=== PATIENT | male | born 1980 | race African-American/Black ===

== ENCOUNTER 2017-05-04 16:10 | Emergency (ER) | payer MEDICAID ==
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
[2017-05-04] MEDS ORDERED: Ibuprofen TAB* 600 MG PO ONE (17:49)
[2017-05-04 18:22] VITALS: BP 124/68
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
== END 2017-05-04 18:22 | disposition home or self-care (01) ==
LOC: ED 16:10
DX: S00.83XA Contusion of other part of head, initial encounter (principal); Y04.2XXA Assault by strike against or bumped into by another person, initial encounter; Y92.89 Other specified places as the place of occurrence of the external cause
CPT/HCPCS: 70486; 99282; A9270-GY

== ENCOUNTER 2017-09-07 04:46 | Emergency (ER) | payer MEDICAID, OTHER ==
[2017-09-07] MEDS ORDERED: Tetan/Diph/Pertus SYR(Tdap)* 0.5 ML SYR(BOOSTRIX) use SYR IM ONE (04:49)
[2017-09-07] MEDS ORDERED: Lidocaine 1%* 5 ML VIAL INJ ONE (04:57)
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
[2017-09-07 06:41] VITALS: BP 131/83
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
== END 2017-09-07 06:50 | disposition home or self-care (01) ==
LOC: ED 04:46
DX: S61.412A Laceration without foreign body of left hand, initial encounter (principal); W26.0XXA Contact with knife, initial encounter; Y92.9 Unspecified place or not applicable
CPT/HCPCS: 12002; 90715; 99282

== ENCOUNTER 2017-10-05 20:24 | Emergency (ER) | payer OTHER ==
[2017-10-05] MEDS ORDERED: Metoclopramide IV* 5 MG/ML 2 ML VIAL IV SLOW PU ONE (21:29)
[2017-10-05] MEDS ORDERED: NS 0.9% 1000 ML* 1,000 ML IV ONE (21:29)
[2017-10-05] MEDS ORDERED: Morphine INJ* 4 MG/ML 1 ML SYRINGE (NEW SYRINGE VERSION) IV ONE (21:29)
[2017-10-05] MEDS ORDERED: Lidocaine 2% PF * 5 ML VIAL ONE ×2 (21:37→22:09)
[2017-10-05 21:51] LABS: ABS Basophils 0.1 10^3/ul (0-0.2); ABS Eosinophils 0 10^3/ul (0-0.6); ABS Lymphocytes 1.3 10^3/ul (1.0-4.8); ABS Monocytes 0.4 10^3/ul (0-0.8); ABS Neutrophils 5.5 10^3/ul (1.5-7.7); ABS Nucleated RBC 0 10^3/ul; Eosinophil % 0.5 % (0-6); Hematocrit 42 % (42-52); Hemoglobin 14.4 g/dl (14.0-18.0); Mean Corpuscular HGB Conc 35 g/dl (31-36); Mean Corpuscular Hemoglobin 33 pg (27-31); Mean Corpuscular Volume 96 fL (80-94); Mean Platelet Volume 8 um3 (7.4-10.4); Nucleated Red Blood Cells % 0.1; Platelet Count 194 10^3/ul (150-450); Red Blood Count 4.32 10^6/ul (4.0-5.4); Red Cell Distribution Width 13 % (10.5-15); White Blood Count 7.3 10^3/ul (3.5-10.8)
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
[2017-10-05 22:01] LABS: EGFR Non-African American 85.1 (>60)
[2017-10-05] MEDS ORDERED: Piperacillin/Tazobac ADVAN(*) 3.375 GM in NS 0.9% 100 ML* 100 ML IVPB ONE (22:53)
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
[2017-10-06] MEDS ORDERED: Ibuprofen TAB* 800 MG PO SCH (00:15)
[2017-10-06 00:22] VITALS: BP 100/59
[2017-10-06] MEDS ORDERED: Ibuprofen TAB* 800 MG PO ONE (00:32)
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
--- NOTE | 2017-10-06 07:31 | RAD ---
HISTORY: Post reduction COMPARISONS: October 05, 2017 at 9:58 PM. VIEWS: 4, Frontal, lateral, and oblique views of the right hand at 10:29 PM FINDINGS: BONE DENSITY: Normal. BONES: There is no displaced fracture. JOINTS: There is no arthropathy. ALIGNMENT: There has been interval reduction of the third PIP dislocation. SOFT TISSUES: Unremarkable. OTHER FINDINGS: None. IMPRESSION: INTERVAL REDUCTION OF THIRD PIP DISLOCATION..
== END 2017-10-06 00:25 | disposition home or self-care (01) ==
LOC: ED 20:24
DX: S02.82XA Fracture of other specified skull and facial bones, left side, initial encounter for closed fracture (principal); S63.259A Unspecified dislocation of unspecified finger, initial encounter; Y09 Assault by unspecified means; Y92.9 Unspecified place or not applicable
CPT/HCPCS: 36415; 70450; 70486; 72125; 80053; 80320; 82550; 83605; 85025; 99284; A9270-GY; G0480; J2270; J2543; J2765

== ENCOUNTER 2017-12-08 04:58 | Emergency (ER) | payer OTHER ==
[2017-12-08 05:02] VITALS: BP 144/85
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
--- NOTE | 2017-12-08 08:13 | RAD ---
INDICATION: Pain. Recent fracture COMPARISON: October 05, 2017 TECHNIQUE: AP, lateral, and oblique views were obtained. FINDINGS: There is no acute fracture. There is prominent soft tissue swelling about the PIP joint. There is a tiny radiodensity along the dorsal and ulnar soft tissues tissues at the PIP joint which could be related to a tiny avulsed fragment or foreign body. IMPRESSION: PROMINENT SOFT TISSUE SWELLING ABOUT THE PIP JOINT
== END 2017-12-08 06:39 | disposition home or self-care (01) ==
LOC: ED 04:58
DX: M79.644 Pain in right finger(s) (principal); M25.441 Effusion, right hand
CPT/HCPCS: 73140; 99282

== ENCOUNTER 2018-05-06 22:42 | Emergency (ER) | payer OTHER ==
[2018-05-06] MEDS ORDERED: Tetan/Diph/Pertus SYR(Tdap)* 0.5 ML SYR(BOOSTRIX) use SYR IM ONE (23:45)
[2018-05-06] MEDS ORDERED: Amoxicillin/Clavulanate TAB* 875 MG PO ONE (23:45)
[2018-05-07] MEDS ORDERED: oxyCODONE TAB* 5 MG TAB PO ONE (00:04)
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
[2018-05-07 01:50] VITALS: BP 135/70
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
== END 2018-05-07 01:49 | disposition home or self-care (01) ==
LOC: ED 22:42
DX: S62.636B Displaced fracture of distal phalanx of right little finger, initial encounter for open fracture (principal); W50.3XXA Accidental bite by another person, initial encounter; Y92.9 Unspecified place or not applicable; R68.84 Jaw pain; F17.210 Nicotine dependence, cigarettes, uncomplicated
CPT/HCPCS: 12002; 73140; 90471; 90715; 99283; A9270-GY